=== PATIENT | female | born 2000 | race Caucasian/White ===

== ENCOUNTER 2022-07-09 | Inpatient (IN) | payer OTHER ==
[2022-07-09] MEDS: ELECTROLYTE-148 SOLN 1,000 ML IV SCH ×2 (00:30→13:40)
[2022-07-09] MEDS ORDERED: BUTORPHANOL TARTRATE 1 MG/ML VIAL IVPB ONE (00:30)
[2022-07-09] MEDS ORDERED: PROMETHAZINE HCL 25 MG/1 ML VIAL IVPB ONE ×2 (00:30→15:30)
[2022-07-09 01:06] VITALS: BMI 29.8
[2022-07-09 01:41] LABS: BASO % 0.7 % (0-2.0); HEMATOCRIT 34.5 % (32.4-45.2); HEMOGLOBIN 12.1 GM/dL (10.7-15.3); LYMPH % 25.8 % (8-40); MCH 30.2 pg (25.7-33.7); MCHC 35.1 g/dl (32.0-36.0); MEAN CELL VOLUME 85.9 fl (80-96); MEAN PLT VOLUME 11.4 fl (7.5-11.1); MONO % 9.5 % (3.8-10.2); PLATELET COUNT 179 10^3/uL (134-434); RBC 4.01 M/mm3 (3.60-5.2); RDW 13.7 % (11.6-15.6); WHITE BLOOD COUNT 6.5 K/mm3 (4.0-10.0)
[2022-07-09 01:59] LABS: INR 0.9 (0.83-1.09); PROTHROMBIN TIME (PATIENT) 10.4 SEC (9.7-13.0)
[2022-07-09 02:01] LABS: ACTIVATED PTT 26.5 SECONDS (25.2-36.5)
[2022-07-09 02:04] LABS: ALBUMIN 2.8 g/dl (3.4-5.0); BLOOD UREA NITROGEN 7.3 mg/dL (7-18); CALCIUM 8.4 mg/dL (8.5-10.1)
[2022-07-09 02:07] LABS: CREATININE 0.4 mg/dL (0.55-1.3)
[2022-07-09 02:09] LABS: BILIRUBIN,TOTAL 0.5 mg/dL (0.2-1); TOT PROT 6.6 g/dl (6.4-8.2)
[2022-07-09] MEDS ORDERED: OXYTOCIN 30 UNITS in 0.9% NS 30 UNIT/500 ML INFUS.BAG IVPB ONE (11:28)
[2022-07-09] MEDS ORDERED: OXYTOCIN 30 UNITS in 0.9% NS 30 UNIT/500 ML INFUS.BAG IVPB SCH (11:30)
[2022-07-09] MEDS ORDERED: BUTORPHANOL TARTRATE 1 MG/ML VIAL IVPUSH ONE (15:30)
[2022-07-09] MEDS ORDERED: BUTORPHANOL TARTRATE 1 MG/ML VIAL ONE (15:38)
[2022-07-09] MEDS ORDERED: PROMETHAZINE HCL 25 MG/1 ML VIAL ONE (15:38)
[2022-07-09 18:05] VITALS: RESP 18
[2022-07-09] MEDS ORDERED: ACETAMINOPHEN 325 MG TABLET (FP) PO PRN (18:48)
[2022-07-09] MEDS ORDERED: METHYLERGONOVINE MALEATE 0.2 MG/1 ML AMP IM PRN (18:48)
[2022-07-09] MEDS ORDERED: morphine SULFATE/PF 1 MG/2 ML (2cc Syringe - QUVA) ONE (20:33)
[2022-07-09] MEDS: OXYTOCIN 20 UNITS in 0.9% NS 20 UNIT/1,000 ML INFUS.BAG IV SCH (21:02)
[2022-07-09] MEDS ORDERED: morphine SULFATE/PF 1 MG/2 ML (2cc Syringe - QUVA) EP ONE (21:36)
[2022-07-09 21:56] LABS: CORD BASE EXCESS -3.4 mmol/L (0-2); CORD HCO3 22.8 mmHg (20-29); CORD PCO2 44.7 mmHg (30-78); CORD pH 7.325 (7.14-7.44)
[2022-07-09] MEDS ORDERED: CITRIC ACID/SODIUM CITRATE 30 ML UNIT-DOSE CUP PO ONE (22:30)
[2022-07-09] MEDS ORDERED: IBUPROFEN 800 MG/8 ML IJ IVPB ONE (22:44)
[2022-07-09] MEDS: IBUPROFEN 800 MG/8 ML IJ IVPB PRN (23:01)
[2022-07-10] MEDS: ELECTROLYTE-148 SOLN 1,000 ML IV SCH (01:33)
[2022-07-10] MEDS: OXYTOCIN 20 UNITS in 0.9% NS 20 UNIT/1,000 ML INFUS.BAG IV SCH (03:00)
[2022-07-10 06:43] LABS: BASO % 0.7 % (0-2.0); EOS % 0.1 % (0-4.5); HEMATOCRIT 27.5 % (32.4-45.2); HEMOGLOBIN 9.4 GM/dL (10.7-15.3); LYMPH % 11.2 % (8-40); MCH 29.3 pg (25.7-33.7); MCHC 34.3 g/dl (32.0-36.0); MEAN CELL VOLUME 85.5 fl (80-96); MEAN PLT VOLUME 10.8 fl (7.5-11.1); MONO % 6.6 % (3.8-10.2); NEUT % 81.4 % (42.8-82.8); PLATELET COUNT 151 10^3/uL (134-434); RBC 3.22 M/mm3 (3.60-5.2); RDW 13.7 % (11.6-15.6); WHITE BLOOD COUNT 12.1 K/mm3 (4.0-10.0)
[2022-07-10] MEDS ORDERED: oxyCODONE HCL 5 MG TABLET PO PRN (06:48)
[2022-07-10] MEDS: IBUPROFEN 800 MG/8 ML IJ IVPB PRN (12:53)
[2022-07-10] MEDS ORDERED: BISACODYL 10 MG SUPP.RECT RC PRN (18:48)
[2022-07-10] MEDS: IBUPROFEN 600 MG TABLET (FP) PO PRN (21:57)
[2022-07-10] MEDS: SIMETHICONE 80 MG TAB.CHEW (FP) PO PRN (21:57)
[2022-07-11] MEDS: SIMETHICONE 80 MG TAB.CHEW (FP) PO PRN ×3 (10:00→20:31)
[2022-07-11] MEDS: IBUPROFEN 600 MG TABLET (FP) PO PRN ×2 (10:00→17:04)
[2022-07-12] MEDS: IBUPROFEN 600 MG TABLET (FP) PO PRN (03:53)
[2022-07-12] MEDS: SIMETHICONE 80 MG TAB.CHEW (FP) PO PRN (03:53)
[2022-07-12 08:44] LABS: BASO % 0.9 % (0-2.0); EOS % 1.2 % (0-4.5); HEMATOCRIT 24.9 % (32.4-45.2); HEMOGLOBIN 8.7 GM/dL (10.7-15.3); LYMPH % 24.6 % (8-40); MCH 29.9 pg (25.7-33.7); MCHC 34.9 g/dl (32.0-36.0); MEAN CELL VOLUME 85.8 fl (80-96); MEAN PLT VOLUME 10.7 fl (7.5-11.1); MONO % 7.7 % (3.8-10.2); NEUT % 65.6 % (42.8-82.8); PLATELET COUNT 162 10^3/uL (134-434); RDW 13.7 % (11.6-15.6)
[2022-07-12 09:23] VITALS: BP 99/62; PULSE 82; TEMP 98.1
== END 2022-07-12 12:12 | disposition home or self-care (01) | DRG 540 ==
LOC: JDEL → JLDR 00:01 → J3W 23:25
PROVIDERS: ADMIT Obstetrics & Gynecology; ATTEND Obstetrics & Gynecology
PROC: 10D00Z1 Extraction of Products of Conception, Low, Open Approach (ICD-10-PCS; principal; 2022-07-09)
DX: O42.02 Full-term premature rupture of membranes, onset of labor within 24 hours of rupture (principal); O61.0 Failed medical induction of labor; Z3A.39 39 weeks gestation of pregnancy; Z37.0 Single live birth
CPT/HCPCS: 36415; 36600; 80053; 82803; 85025; 85610; 85730; 86780; 86850; 86900; 86901; 88307-TC; 94010; C9803-CS; U0003; U0005